=== PATIENT | female | born 1995 | race Caucasian/White ===

== ENCOUNTER → 2017-08-03 | Outpatient (CLI) | payer OTHER | LOC: COL.PUL 08:00 | DX: R06.02 Shortness of breath (principal); Z87.891 Personal history of nicotine dependence ==

== ENCOUNTER → 2017-09-21 | Outpatient (CLI) | payer OTHER | LOC: COL.PUL 09-19 13:00 | DX: R06.00 Dyspnea, unspecified (principal); Z87.891 Personal history of nicotine dependence | CPT/HCPCS: J7674 ==

== ENCOUNTER → 2019-06-04 | Outpatient (CLI) | payer OTHER | LOC: COL.LAB 16:51 | DX: R07.89 Other chest pain (principal); R00.0 Tachycardia, unspecified ==

== ENCOUNTER 2019-07-30 16:22 | Emergency (ER) | payer OTHER ==
[~2019-07-30] VITALS: Ht 165.1 cm; Wt 75.0 kg
[2019-07-30 16:40] VITALS: BP 132/74; TEMP 97.4
[2019-07-30 17:02] LABS: COLLECTION METHOD CLEAN CATCH
[2019-07-30] MEDS ORDERED: OMNICEF 300MG300 MG PO (17:11)
[2019-07-30 17:19] LABS: MUCOUS Present /lpf; PH 5 (5-8); SQUAMOUS EPITHELIAL 0-2 /hpf; URINE APPEARANCE Clear; URINE BACTERIA None Seen /hpf; URINE BILIRUBIN Negative (NEGATIVE); URINE BLOOD 1+ (NEGATIVE); URINE COLOR Amber; URINE GLUCOSE Negative (NEGATIVE); URINE KETONE Negative (NEGATIVE); URINE LEUKOCYTE ESTERASE Negative (NEGATIVE); URINE NITRATE Negative (NEGATIVE); URINE PROTEIN(semi-quant) Negative (NEGATIVE); URINE UROBILINOGEN Negative (NEGATIVE)
[2019-07-30 17:34] VITALS: PULSE 99
== END 2019-07-30 17:33 | disposition home or self-care (01) ==
LOC: COL.ER 16:22
PROVIDERS: Physician Assistant
DX: J01.90 Acute sinusitis, unspecified (principal); J45.909 Unspecified asthma, uncomplicated
CPT/HCPCS: J1885

== ENCOUNTER 2019-08-02 21:17 | Emergency (ER) | payer OTHER ==
[~2019-08-02] VITALS: Ht 165.1 cm; Wt 75.0 kg
[~2019-08-02 21:17] MED LIST: OMNICEF 300MG300 MG PO
[2019-08-02 21:33] VITALS: TEMP 98
[2019-08-02] MEDS ORDERED: ATIVAN 0.50.5 MG/TAB PO (22:40)
[2019-08-02] MEDS ORDERED: ZOFRAN 4MG T4 MG/TAB PO (22:40)
[2019-08-02 22:41] LABS: BASO # 0.1 (0.0-0.2); BASO % 0.6 % (0.0-2.0); EOS # 0.1 (0.0-0.7); EOS % 0.9 % (0-4.0); GRAN # 7.6 (1.4-6.5); GRAN % 65.6 % (42.2-75.2); HEMATOCRIT 38.2 % (37.0-47.0); HEMOGLOBIN 12.9 g/dl (12.5-16.0); LYMPH # 2.9 (1.2-3.4); LYMPH % 25.3 % (20.0-51.0); MEAN CELL VOLUME 83 fl (80.0-100.0); MEAN CORPUSCULAR HEMOGLOBIN 28 pg (27.0-31.0); MEAN CORPUSCULAR HGB CONC 34 g/dl (33.0-37.0); MEAN PLATELET VOLUME 9.2 fl (7.4-10.4); MONO # 0.9 (0.1-0.6); MONO % 7.4 % (1.7-9.3); PLATELET COUNT 443 K/mm3 (130-400); RED BLOOD COUNT 4.61 M/mm3 (4.10-5.30); REDCELL DISTRIBUTION WIDTH-CV 12.5 % (11.5-14.5)
[2019-08-02 22:52] LABS: ALBUMIN 4.5 gm/dL (3.5-5.0); BILIRUBIN,TOTAL 0.5 mg/dL (0.0-1.0); C-REACTIVE PROTEIN 0.6 mg/dL (0.0-0.9); CALCIUM 9.6 mg/dL (8.4-10.2); CREATININE, serum 0.47 (0.52-1.25); POTASSIUM 3.9 mmol/L (3.4-5.0)
[2019-08-02 23:36] LABS: COLLECTION METHOD CLEAN CATCH
[2019-08-02 23:41] LABS: MUCOUS Present /lpf; PH 5 (5-8); SQUAMOUS EPITHELIAL 0-2 /hpf; URINE APPEARANCE Clear; URINE BACTERIA Rare /hpf; URINE BILIRUBIN Negative (NEGATIVE); URINE BLOOD 2+ (NEGATIVE); URINE COLOR Yellow; URINE GLUCOSE Negative (NEGATIVE); URINE KETONE 1+ (NEGATIVE); URINE LEUKOCYTE ESTERASE Negative (NEGATIVE); URINE NITRATE Negative (NEGATIVE); URINE PROTEIN(semi-quant) Negative (NEGATIVE); URINE UROBILINOGEN Negative (NEGATIVE)
[2019-08-03 00:10] VITALS: BP 110/73; PULSE 88
== END 2019-08-03 00:10 | disposition home or self-care (01) ==
LOC: COL.ER 21:17
PROVIDERS: Emergency Medicine
DX: J32.9 Chronic sinusitis, unspecified (principal); R42 Dizziness and giddiness
CPT/HCPCS: J2060; J2405; J7030

== ENCOUNTER 2021-03-06 15:06 | Outpatient (CLI) | payer OTHER ==
[~2021-03-06] VITALS: Ht 167.6 cm; Wt 91.4 kg
[~2021-03-06 15:06] MED LIST changes: +ATIVAN 0.50.5 MG/TAB PO; +ZOFRAN 4MG T4 MG/TAB PO
--- NOTE | 2021-03-06 15:10 | NUR ---
Admits to L&D, ambulatory, with c/o "I felt a gush of fluid while I was getting dressed for work. I'm not sure if I peed myself, or if my water broke." Denies any continued leaking. Denies any contractions, or vaginal bleeding. Reports positive movement.
--- NOTE | 2021-03-06 15:15 | NUR ---
SVE dry, amnitrace negative, closed/thick/high/posterior.
[2021-03-06 15:26] VITALS: BP 129/84; PULSE 106; TEMP 97.7
[2021-03-06] MEDS ORDERED: ZOLOFT 100MG100 MG PO (15:51)
[2021-03-06] MEDS ORDERED: SINGULAIR 110 MG/TAB (15:52)
[2021-03-06] MEDS ORDERED: PNV-DHA1 SGL PO (15:52)
[2021-03-06] MEDS ORDERED: CLARITIN 1010 MG/TAB PO (15:53)
== END 2021-03-06 15:35 | disposition home or self-care (01) ==
LOC: LDRO 15:06 → LDR 15:10 → LDRO 15:35
DX: Z34.83 Encounter for supervision of other normal pregnancy, third trimester (principal); Z3A.35 35 weeks gestation of pregnancy
CPT/HCPCS: OP

== ENCOUNTER 2021-03-24 06:23 | Inpatient (IN) | payer OTHER ==
[2021-03-24] VITALS (33 sets, daily range): BP systolic 100–144; BP diastolic 59–98; PULSE 75–121; TEMP 98–98.6
[~2021-03-24] VITALS: Ht 167.6 cm; Wt 96.4 kg
[~2021-03-24 06:23] MED LIST changes: +CLARITIN 1010 MG/TAB PO; +PNV-DHA1 SGL PO; +SINGULAIR 110 MG/TAB; +ZOLOFT 100MG100 MG PO
--- NOTE | 2021-03-24 06:35 | NUR ---
Patient ambulatory to LR3 with spouse, changed into gown, FHR/TOCO monitors applied and explained. Patient here for scheduled induction for cholestasis. Patient denies any regular contractions, leaking of fluid, vaginal bleeding, or decreased movement. Plan of care discussed and questions answered. 0650: IV started in left hand per Abena Pedraza RN. Blood obtained and to lab, LR infusing. Assessment completed and packet given. 0723: Pitocin induction discussed and patient agrees with plan of care. Pitocin started at 2mu/hr. 0830: Roles at bedside and assessing patient and FHR strip. SVE-3/80/-2 and AROM at this time with clear fluid noted.
[2021-03-24] MEDS ORDERED: ACTIGALL 300MG300 MG PO (06:55)
[2021-03-24] MEDS ORDERED: FERROUSGLUC256MG (06:55)
[2021-03-24] MEDS ORDERED: 00186-0372-20 IH (06:56)
[2021-03-24 07:21] LABS: BASO % 0.4 % (0.0-2.0); EOS # 0.1 K/mm3 (0.0-0.7); EOS % 1.2 % (0-4.0); GRAN # 6.8 K/mm3 (1.4-6.5); GRAN % 65.2 % (42.2-75.2); HEMATOCRIT 38.7 % (37.0-47.0); HEMOGLOBIN 13.6 g/dl (12.5-16.0); LYMPH # 2.8 K/mm3 (1.2-3.4); LYMPH % 26.5 % (20.0-51.0); MEAN CELL VOLUME 86 fl (80.0-100.0); MEAN CORPUSCULAR HEMOGLOBIN 30 pg (27.0-31.0); MEAN CORPUSCULAR HGB CONC 35 g/dl (33.0-37.0); MEAN PLATELET VOLUME 10.5 fl (7.4-10.4); MONO # 0.6 K/mm3 (0.1-0.6); MONO % 5.7 % (1.7-9.3); PLATELET COUNT 208 K/mm3 (130-400); RED BLOOD COUNT 4.48 M/mm3 (4.10-5.30); REDCELL DISTRIBUTION WIDTH-CV 14.5 % (11.5-14.5)
--- NOTE | 2021-03-24 10:00 | NUR ---
Patient requesting epidural at this time and Jefe Cramer CRNA called and notified. 1030: Patient sitting up for epidural and Jefe Cramer CRNA at bedside. Difficulty tracing FHR due to maternal position. 1035: Single shot given and patient tolerates well. 1040: Patient repositioned and safety precautions/plan of care discussed.
--- NOTE | 2021-03-24 11:08 | NUR ---
FHR baseline 125bpm. FHR decreasing to 100-115bpm for approx. 8-9 minutes and patient left lateral at this time. 1120: FHR baseline returns to 120-125bpm. 1140: Dover catheter placed at this time and patient tolerates well. 1145: SVE 5-6/80/-1 1150: Patient left lateral and right leg resting in stirrup. 1230: Difficulty tracing FHR and this RN at bedside adjusting monitor. 1250: Difficutly tracing FHR and patient right lateral. 1315: SVE- 10/100/+2, Dr. Jiang at nurses station and notified. 1320: Dover catheter removed and Dr. Jiang at bedside. Patient prepped for vaginal delivery. 1325: Patient begins to push with contractions. 1338: Spontaneous vaginal delivery of viable male-head followed by body. to patients abdomen and DJess RN assumes care of . Cord clamped and cut by physician and cord blood obtained. 1341: Spontaneous delivery of placenta. Moderate bleeding noted and Dr. Jiang orders for IM methergine at this time. Fundal massage done by physician. 1345: Methergine given IM in left thigh. Dr. Jiang repairs laceration Fundal massage done and blood clots expressed/firm/bleeding improving Pericare done, patient repositioned, ice pack to perineum Plan of care discussed.
[2021-03-25 00:15] VITALS: BP 124/76; PULSE 96; TEMP 97.9
[2021-03-25 03:30] VITALS: BP 123/70; PULSE 100; TEMP 98.1
[2021-03-25 08:30] VITALS: BP 118/78; PULSE 83; TEMP 97.2
[2021-03-25] MEDS ORDERED: IBU800 M1 PO (09:35)
[2021-03-25 11:13] LABS: TRICYCLIC ANTIDEPRESS URINE NEGATIVE
--- NOTE | 2021-03-25 13:11 | NUR ---
[facility] recd referral due to patient's history of drug use. This SW and [facility] Bobby, met with patient at bedside. Patient's baby boy was next to patient as well as pt's . 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 Patient, her hardeepb and their 7 year old daughter reside in [place]. This worker inquired about patient's past abuse of drugs and alcohol from the age of 10 to 17. Patient was candid about past hx to include alcohol, marijuana, pain pills, and ecstasy. Patient admitted that she had a problem with the above substances until she got with her daughter and she "stopped everything". Patient reports that is very supportive and does a great job of taking care of her. Patient also states that she has been going to counseling for the past year and sees Lelo Mcgarry once a week. She states this has helped her tremendously. Both SW spoke with patient about resources and patient is familiar with what is available locally. She also stated she has applied for WIC in the past but was denied because they made too much money. Patient answered questions appropriately and she will contact this worker if she has further needs. D/C Plan: Home
[2021-03-25 16:46] VITALS: BP 118/78; PULSE 93; TEMP 97.2
[2021-03-25 20:30] VITALS: BP 138/89; PULSE 104; TEMP 98
[2021-03-26 08:02] VITALS: BP 119/76; PULSE 99; TEMP 97.8
--- NOTE | 2021-03-26 10:25 | NUR ---
Discharge instructions reviewed. Pt verbalizes understanding. Pt to boarder status.
== END 2021-03-26 10:25 | disposition home or self-care (01) | DRG 805 ==
LOC: LDR 06:23 → OB 06:23
PROVIDERS: ADMIT Obstetrics & Gynecology
PROC: 10E0XZZ Delivery of Products of Conception, External Approach (ICD-10-PCS; principal; 2021-03-24)
PROC: 0KQM0ZZ Repair Perineum Muscle, Open Approach (ICD-10-PCS; 2021-03-24)
PROC: 10907ZC Drainage of Amniotic Fluid, Therapeutic from Products of Conception, Via Natural or Artificial Opening (ICD-10-PCS; 2021-03-24)
PROC: 3E033VJ Introduction of Other Hormone into Peripheral Vein, Percutaneous Approach (ICD-10-PCS; 2021-03-24)
DX: O26.62 Liver and biliary tract disorders in childbirth (principal); K83.1 Obstruction of bile duct; Z37.0 Single live birth; O99.344 Other mental disorders complicating childbirth; F32.A Depression, unspecified; F41.9 Anxiety disorder, unspecified; O99.02 Anemia complicating childbirth; D64.9 Anemia, unspecified; O99.52 Diseases of the respiratory system complicating childbirth; O70.1 Second degree perineal laceration during delivery; O69.81X0 Labor and delivery complicated by cord around neck, without compression, not applicable or unspecified; J45.909 Unspecified asthma, uncomplicated; Z3A.38 38 weeks gestation of pregnancy
CPT/HCPCS: J2210; J2405; J2590; J2791; J2795; J7120

== ENCOUNTER 2022-02-17 00:07 | Emergency (ER) | payer OTHER ==
[~2022-02-17] VITALS: Ht 165.1 cm; Wt 72.7 kg
[~2022-02-17 00:07] MED LIST changes: +00186-0372-20 IH; +ACTIGALL 300MG300 MG PO; +FERROUSGLUC256MG; +IBU800 M1 PO
[2022-02-17 00:16] VITALS: TEMP 98.2
[2022-02-17 01:23] LABS: COLLECTION METHOD CLEAN CATCH
[2022-02-17 01:29] LABS: SQUAMOUS EPITHELIAL 0-2 /hpf (0-10); URINE APPEARANCE Clear (CLEAR/HAZY); URINE BACTERIA Rare /hpf (NONE SEEN); URINE COLOR Yellow (YELLOW); URINE GLUCOSE Negative (NEGATIVE); URINE KETONE Negative (NEGATIVE); URINE NITRATE Negative (NEGATIVE); URINE PROTEIN(semi-quant) Negative (NEGATIVE); URINE RBC 0-2 /hpf (0-2); URINE UROBILINOGEN 0.2 E.U/dL (0.2-1.0)
[2022-02-17 01:30] LABS: URINE BLOOD 2+ (NEGATIVE)
[2022-02-17 01:37] LABS: BASO % 0.4 % (0.0-2.0); EOS # 0.1 K/mm3 (0.0-0.7); EOS % 1.5 % (0.0-4.0); GRAN # 4.3 K/mm3 (1.4-6.5); GRAN % 55.3 % (42.2-75.2); HEMATOCRIT 39.2 % (37.0-47.0); HEMOGLOBIN 13.6 g/dl (12.5-16.0); LYMPH # 2.9 K/mm3 (1.2-3.4); LYMPH % 36.6 % (20.0-51.0); MEAN CELL VOLUME 87 fl (80.0-100.0); MEAN CORPUSCULAR HEMOGLOBIN 30 pg (27-31); MEAN CORPUSCULAR HGB CONC 35 g/dl (33.0-37.0); MEAN PLATELET VOLUME 9.4 fl (7.4-10.4); MONO # 0.5 K/mm3 (0.1-0.6); MONO % 5.9 % (1.7-9.3); PLATELET COUNT 305 K/mm3 (130-400); RED BLOOD COUNT 4.53 M/mm3 (4.10-5.30); REDCELL DISTRIBUTION WIDTH-CV 12.5 % (11.5-14.5)
[2022-02-17 02:01] LABS: ALBUMIN 4.3 gm/dL (3.5-5.0); BILIRUBIN,TOTAL 0.5 mg/dL (0.2-1.2); CALCIUM 9.3 mg/dL (8.4-10.2); CREATININE, serum 0.83 mg/dL (0.57-1.11); POTASSIUM 4.1 mmol/L (3.5-4.5)
[2022-02-17 02:20] VITALS: BP 134/78; PULSE 60
== END 2022-02-17 02:20 | disposition home or self-care (01) ==
LOC: COL.ER 00:07
PROVIDERS: Family Medicine
DX: N93.9 Abnormal uterine and vaginal bleeding, unspecified (principal)

== ENCOUNTER → 2023-06-13 | Outpatient (CLI) | payer OTHER | LOC: COL.RAD 09:18 | DX: R10.13 Epigastric pain (principal); R11.0 Nausea ==

== ENCOUNTER → 2023-06-28 | Outpatient (CLI) | payer OTHER ==
[~2023-06-28] MED LIST changes: +Iohexol 300 - 100 ML VIAL IV ONE; +NS 100 ML IV SCH
== END ==
LOC: COL.RAD 07:36
DX: K76.89 Other specified diseases of liver (principal)
CPT/HCPCS: Q9967